=== PATIENT | male | born 1950 | race Caucasian/White ===

== ENCOUNTER 2019-12-22 19:02 | Emergency (ER) | payer MEDICARE, OTHER, SELFPAY ==
[2019-12-22 19:18] VITALS: BP 172/71; PULSE 82; RESP 20; TEMP 36.9; O2SAT 100
--- NOTE | 2019-12-22 19:20 | ED.GENADULT ---
HPI - General Adult General Chief complaint: Extremity Injury, Upper Stated complaint: right hand swollen Time Seen by Provider: 12/22/19 19:21 Source: patient and RN notes reviewed Mode of arrival: ambulatory Limitations: no limitations History of Present Illness HPI narrative: This is a 67 years old male presented office for evaluation of right hand swollen and painful since he woke up yesterday morning.Denies direct trauma or injury on his affected hand prior to onset of symptoms.Denies direct trauma or injury on his affected hand prior to onset of symptoms. Denies insect bite. He admits to dry skin on his knuckles and hands; sometimes crack. He recalls wearing old gloves to clean his horse prior. He is right hand dominated. He is not diabetic. TD is unsure; maybe within 7-8years; but he rather takes another one to be on the safe side. Related Data Allergies Allergy/AdvReac Type Severity Reaction Status Date / Time No Known Allergies Allergy Verified 12/22/19 19:20 Review of Systems Review of Systems: Narrative: CONSTITUTIONAL: Denies fever or feeling ill CARDIOVASCULAR: Denies chest pain RESPIRATORY: Denies dyspnea GASTROINTESTINAL: Denies abdominal pain, nausea, vomiting, diarrhea. SKIN: Reports right hand swollen, red and warmth MUSCULOSKELETAL: Denies wrist pain/shoulder pain NEUROLOGIC: Denies lightheaded PMFSH Social History Social History (Updated 12/22/19 @ 19:41 by PARAG Mcfarland) Smoking status: Never smoker Comments At time of signature, I agree with nursing past medical, surgical, social and family history. There is no relevant family history pertinent to the presenting complaint. Exam Narrative: Exam Narrative: GENERAL: This is a well-nourished, well-developed patient, in no apparent distress. CARDIOVASCULAR: Regular rate and rhythm without murmurs, gallops, or rubs. RESPIRATORY: Clear to auscultation. Breath sounds equal bilaterally. No wheezes, rales, or rhonchi. GASTROINTESTINAL: Abdomen soft, non-tender, nondistended. Bowel sounds are active. No guarding. NEURO: awake, alert, and oriented to person, place and time. There were no obvious focal neurologic abnormalities. EXTREMITIES: Right hand and fingers noted erythema, edematous, warmth with clear demarcation around wrist area; possible source of infection entry from skin fissures on his knuckles. Right wrist with normal ROM; cap refills brisk. Course Vital Signs Vital signs: Vital Signs Temperature 98.5 F 12/22/19 19:18 Pulse Rate 82 12/22/19 19:18 Respiratory Rate 20 12/22/19 19:18 Blood Pressure 172/71 H 12/22/19 19:18 Pulse Oximetry 100 12/22/19 19:18 Temperature 98.5 F 12/22/19 19:18 Pulse Rate 82 12/22/19 19:18 Respiratory Rate 12/22/19 19:18 Blood Pressure 172/71 H 12/22/19 19:18 Pulse Oximetry 100 12/22/19 19:18 Medical Decision Making MDM Narrative Medical decision making narrative: Discharge instructions reviewed with patient, as well as provided in writing per nursing staff. The instructions also include specific and strict return/GO TO THE ER as well as f/u information. All questions have been answered, and the patient deny any further questions with discharge and discharge plan. Differential Diagnosis Differential Diagnosis: Contact/allergic dermatitis, atopic dermatitis, psoriasis, eczema, cellulitis, erythema multiforme Vital Signs Vital Signs: Vital Signs Temperature 98.5 F 12/22/19 19:18 Pulse Rate 82 12/22/19 19:18 Respiratory Rate 12/22/19 19:18 Blood Pressure 172/71 H 12/22/19 19:18 Pulse Oximetry 100 12/22/19 19:18 Temperature 98.5 F 12/22/19 19:18 Pulse Rate 82 12/22/19 19:18 Respiratory Rate 12/22/19 19:18 Blood Pressure 172/71 H 12/22/19 19:18 Pulse Oximetry 100 12/22/19 19:18 Critical Care Time Critical Care Time Critical Care Time: No Discharge Plan Discharge Clinical Impression: Cellulitis of finger of r
[2019-12-22] MEDS: TETANUS,DIPHTHERIA,AC PERTUSSIS ADULT 0.5 ML (ADACEL) IM (19:38)
== END 2019-12-22 19:50 | disposition home or self-care (01) ==
PROVIDERS: Emergency Provider Nurse Practitioner
DX: L03.011 Cellulitis of right finger (principal); Z23 Encounter for immunization
CPT/HCPCS: 90471; 90715; 99203; G0463

== ENCOUNTER 2020-08-12 18:00 | Emergency (ER) | payer MEDICARE, OTHER, SELFPAY ==
--- NOTE | ~2020-08-12 | CT_ITS ---
EXAMINATION: CT facial bones wo con DATE: 08/12/2020 19:31 INDICATION: Facial trauma TECHNIQUE: Computed tomography (CT) of the facial bones and maxillofacial region was performed withou t intravenous contrast. Automated exposure control and iterative reconstruction technique were employ ed. Exam dose: 321.87 mGy-cm total exam DLP. COMPARISON: None. FINDINGS: There is left frontal cephalohematoma and left periorbital soft tissue swelling. Postoperative change with radiopaque sutures at the left inferior orbital rim and left frontozygomati c suture. There is a lucency of the midportion of the left zygomatic arch without displacement, consistent with fracture of uncertain age No other recent facial fracture is evident. The mandible is intact. Temporal mandibular joints are no rmally aligned. IMPRESSION: Nondisplaced left zygomatic arch fracture of undetermined age Postoperative change from old fractures Reviewed, dictated and finalized at [facility] Reviewed, dictated and finalized at [facility].
[2020-08-12 18:14] VITALS: BP 170/93; PULSE 106; RESP 18; TEMP 37.1; O2SAT 100
--- NOTE | 2020-08-12 19:00 | PC.NURSE ---
patient brought back to ED H3 with left eye injury. patient states yesterday he was walking thru his home while holding a bottle. tripped and fell. struck his left eye on the bottle as he fell. has bruising and swelling to his left eye. some mucous like drainage around left eye also. patient went to urgent care but referred to ED. denies LOC at time of fall. denies neck pain. here with concern about his eye. alert. oriented. assessments documented.
--- NOTE | 2020-08-12 19:12 | ED.EYEPROB ---
HPI - Eye Problem General Chief complaint: Eye Problems Stated complaint: hit with bottle to l eye Time Seen by Provider: 08/12/20 19:05 History of Present Illness HPI Narrative: He was walking with a glass glass unloading equipment tender in his hand last night when he fell, striking himself above the left eye. He had some pain at the time, but normal vision and was otherwise feeling well. He awoke this morning with his eye swollen shut. The pain is moderate. No pain with eye movement. Related Data Allergies Allergy/AdvReac Type Severity Reaction Status Date / Time No Known Allergies Allergy Verified 12/22/19 19:20 Review of Systems Review of Systems: All systems reviewed & are unremarkable except as noted in HPI and below Constitutional: Constitutional: Denies fever(s) Eyes: Eyes: Denies change in vision ENT: Denies system reviewed and no additional complaints, except as documented Cardiovascular: Cardiovascular: Denies chest pain Respiratory: Respiratory: Denies dyspnea Gastrointestinal: Gastrointestinal: Denies nausea and Denies vomiting Musculoskeletal: Musculoskeletal: Denies back pain Neurologic: Denies confusion, Denies dizziness and Denies weakness [facility] Social History Social History Smoking status: Never smoker Exam Const: General: healthy appearing, no acute distress and alert Orientation/consciousness: patient oriented x3 HENMT: Ears: TM's normal bilaterally and EAC's normal Other: Periorbitla bruising and swelling on the left Eyes: Conjunctivae: conjunctivae normal Pupils: Equal, round and reactive pupils present EOM: EOMs intact bilaterally Neck: Neck: normal visual inspection and no lymphadenopathy Chest: Chest palpation & inspection: no tenderness Resp: Effort & Inspection: normal respiratory effort Auscultation: clear to auscultation bilaterally, no rales, no rhonchi and no wheezes Cardio: Jugular venous distension: no JVD Rate: regular rate Rhythm: regular rhythm Heart sounds: no murmurs GI: Inspection: non-distended GI Palp: Yes Soft to palpation and No Tenderness to palpation present (GI) Skin: General skin exam: normal color Neuro: General: patient oriented x3 and moves all extremities Speech: normal speech Extrem: General: no edema Psych: Appearance: well kempt Affect: normal affect Course Vital Signs Vital signs: Vital Signs Temperature 37.1 C 10/10/20 18:14 Pulse Rate 106 H 08/12/20 18:14 Respiratory Rate 18 08/12/20 18:14 Blood Pressure 170/93 H 08/12/20 18:14 Pulse Oximetry 100 08/12/20 18:14 Temperature 37.1 C 08/12/20 18:14 Pulse Rate 100 08/12/20 20:15 Respiratory Rate 20 08/12/20 20:15 Blood Pressure 150/80 H 08/12/20 20:15 Pulse Oximetry 99 08/12/20 20:15 MDM - Eye Problem MDM Narrative Medical decision making narrative: Normal eye exam. CT shows nondisplaced zygomatic arch fracture. Will give plastics follow-up as needed Imaging Data Radiologist's impression: ITS Impressions Face CT 08/12/20 19:50 IMPRESSION: Nondisplaced left zygomatic arch fracture of undetermined age Postoperative change from old fractures Discharge Plan Discharge Clinical Impression: Closed fracture of zygomatic arch Patient Disposition: Home, Self-Care Condition: Stable Instructions: Facial Fracture (ED) Prescriptions: No Action cephalexin [Keflex] 500 mg capsule 500 mg PO QID 7 Days Qty: 28 RF: 0 Follow-up/Referrals: Maxwell Siddiqui MD [Physician] - (As needed ) PHYSICIAN,INTELLIGENCE CHIEF [Primary Care Provider] -
[2020-08-12 20:15] VITALS: BP 150/80; PULSE 100; RESP 20; O2SAT 99
== END 2020-08-12 20:15 | disposition home or self-care (01) ==
PROVIDERS: Emergency Provider Emergency Medicine
DX: S02.40FA Zygomatic fracture, left side, initial encounter for closed fracture (principal); W01.198A Fall on same level from slipping, tripping and stumbling with subsequent striking against other object, initial encounter
CPT/HCPCS: 70486; 99284

== ENCOUNTER 2021-02-04 15:32 | Observation (INO) | payer MEDICARE, OTHER, SELFPAY ==
[2021-02-04] VITALS (8 sets, daily range): BP systolic 132–169; BP diastolic 80–98; PULSE 72–88; RESP 10–20; TEMP 36.2–37.1; O2SAT 96–99; BMI 26.4
--- NOTE | ~2021-02-04 | CT_ITS ---
EXAMINATION: CTA brain carotid DATE: 02/04/2021 18:09 INDICATION: Confusion. TECHNIQUE: Computed tomographic angiography (CTA) of the head was performed with 100 mL Omnipaque-350 intravenous contrast. CTA of the neck was performed with intravenous contrast. Automated exposure co ntrol and iterative reconstruction technique were employed. The dose-length product was 1149.75 mGy-c m. Maximum intensity projection and volume rendered 3D-reconstructions were created by the technPalamidai st on a separate workstation. COMPARISON: Head CT 02/04/2021 FINDINGS: HEAD CTA: There is no intracranial hemorrhage, acute infarction, or abnormal intracranial mass lesion . The ventricles are normal in size. The orbits are normal. There is mild mucosal thickening in the p aranasal sinuses. There are old healed fractures of left zygomaticomaxillary complex with wire fixati on. The mastoid air cells are normal. Right vertebral artery is dominant. There is no significant alda nosis of basilar artery or the posterior cerebral arteries. The posterior communicating arteries are normal. There is no significant stenosis of the intracranial internal carotid arteries or anterior or middle cerebral arteries. Anterior communicating artery is normal. There is no aneurysm. NECK CTA: There is mild emphysema. There are no pathologically enlarged lymph nodes. There is no sign ificant stenosis of the vertebral arteries. There is plaque in the proximal internal carotid arteries with 0% stenosis relative to normal distal artery lumen diameters. There is severe cervical spondylo sis. IMPRESSION: 1. Normal brain. No aneurysm or significant intracranial arterial stenosis. 2. 0% stenosis of the proximal internal carotid arteries relative to normal distal artery lumen diame ters (NASCET criteria). Reviewed, dictated and finalized at [facility]. IMPRESSION: 1. Normal brain. No aneurysm or significant intracranial arterial stenosis. 2. 0% stenosis of the proximal internal carotid arteries relative to normal dis thaddeus artery lumen diameters (NASCET criteria).
--- NOTE | ~2021-02-04 | XR_ITS ---
EXAMINATION: XR chest 1V portable DATE: 02/04/2021 16:26 INDICATION: Altered mental status. TECHNIQUE: A single frontal view of the chest was obtained. COMPARISON: None. FINDINGS: There is mild scarring at right lung apex. No pleural effusion or pneumothorax. The heart s ize is normal. IMPRESSION: 1. Mild scarring at right lung apex. Reviewed, dictated and finalized at [facility].
--- NOTE | ~2021-02-04 | MR_ITS ---
EXAMINATION: MR brain/brain stem wo/w con DATE: 02/05/2021 08:58 INDICATION: Transient ischemic attack. TECHNIQUE: Magnetic resonance imaging (MRI) of the brain and brainstem was performed without and with 18 mL MultiHance intravenous contrast. Sequences included sagittal and axial T1-weighted FSE, axial diffusion-weighted FS EPI, axial T2*-weighted GRE, axial T2-weighted FLAIR Propeller, and axial T2-we ighted Propeller. Postcontrast sequences included axial and coronal T1-weighted FSE. Apparent diffusi on coefficient (ADC) maps were created. COMPARISON: Head CT 02/04/2021 FINDINGS: There are scattered areas of nonspecific increased T2-weighted signal intensity in the cere bral white matter, which is within normal limits for the patient's age. There is no intracranial hemo rrhage, acute infarction, or abnormal intracranial mass lesion. The ventricles are normal in size. Th ere is mild mucosal thickening in the paranasal sinuses. The orbits are normal. There is a trace righ t mastoid effusion. IMPRESSION: 1. Normal aging brain. Reviewed, dictated and finalized at [facility]. IMPRESSION: 1. Normal aging brain.
--- NOTE | ~2021-02-04 | CT_ITS ---
EXAMINATION: CT brain wo con DATE: 02/04/2021 16:21 INDICATION: Confusion. TECHNIQUE: Computed tomography (CT) of the head was performed without intravenous contrast. The mA wa s adjusted according to patient size. Iterative reconstruction technique was employed. The dose-lengt h product was 605.33 mGy-cm. COMPARISON: None FINDINGS: There is no intracranial hemorrhage, acute infarction, or abnormal intracranial mass lesion . There are scattered areas of low attenuation in the cerebral white matter, which is within normal l imits for the patient's age. The ventricles are normal in size. The orbits are normal. There is mild mucosal thickening in the paranasal sinuses. There is internal fixation of lateral wall of left orbit and anterior wall of left maxillary sinus. The mastoid air cells are normal. IMPRESSION: 1. Normal aging brain. Reviewed, dictated and finalized at location [facility]. IMPRESSION: 1. Normal aging brain.
--- NOTE | 2021-02-04 15:34 | ECG_ITS ---
Measurements Intervals Levels Rate: 81 P: 54 MO: 159 QRS: -16 QRSD: 99 T: 58 QT: 376 QTc: 438 Interpretive Statements SINUS RHYTHM WITH MARKED SINUS ARRHYTHMIA DELAYED PRECORDIAL R/S TRANSITION BORDERLINE ECG Electronically Signed On 02-04-2021 17:20:52 CDT by Reinaldo Garner D.O.
[2021-02-04 16:25] LABS: Basophils Absolute Auto 0.1 K/mm3 (0.0-0.1); Basophils Percent Auto 0.8 % (0.2-1.2); Eosinophils Percent Auto 0.5 % (0-4.4); Hematocrit 42.8 % (42.0-52.0); Hemoglobin 14.6 g/dL (14.0-18.0); Immature Granulocyte Absolute 0.01 K/mm3 (0.00-0.031); Immature Granulocyte Percent A 0.2 % (0-0.5); Lymphocytes Absolute Auto 0.93 K/mm3 (0.9-3.2); Lymphocytes Percent Auto 14.6 % (18.3-44.2); Mean Corpuscular HGB Conc 34.1 g/dl (32-36); Mean Corpuscular Hemoglobin 30.1 pg (26-34); Mean Corpuscular Volume 88.2 fl (80-100); Mean Platelet Volume 9.3 fl (7.4-10.4); Monocytes Absolute Auto 0.4 K/mm3 (0.1-0.6); Neutrophils Percent Auto 77.9 % (45.5-73.1); Platelet Count Result 232 k/mm3 (150-375); Red Blood Count 4.85 M/mm3 (4.6-6.20); Red Cell Distribution Width 12.3 % (11.5-14.5); White Blood Count 6.4 K/mm3 (4.5-10.0)
[2021-02-04 16:36] LABS: Alanine Aminotransferase 18 U/L (4-50); Albumin Level 4.6 g/dL (3.5-5.1); Alkaline Phosphatase 74 U/L (38-126); Anion Gap 6 mmol/L (8-16); Aspartate Amino Transferase 24 U/L (17-59); Bilirubin,Total 0.5 mg/dL (0.2-1.3); Blood Urea Nitrogen 14 mg/dL (9-20); Calcium 9.7 mg/dL (8.4-10.2); Carbon Dioxide 28 mmol/L (22-30); Chloride 107 mmol/L (98-107); Estimated CRCL calculation 71 ml/min; Estimated Glomerular Filt Rate > 60; Glucose 113 mg/dL (75-110); Potassium 4.5 mmol/L (3.4-5.0); Sodium 141 mmol/L (137-145)
[2021-02-04 16:42] LABS: Add Urine Microscopic? YES; Appearance Urine Clear (Clear); Bilirubin Urine Negative (Negative); Blood Urine Negative (Negative); Color Urine Straw (Yellow); Glucose Urine UA Negative (Negative); Ketones Urine Negative (Negative); Leukocyte Esterase Ur Negative LEU/UL (Negative); Nitrate Urine Negative (Negative); Protein Urine Negative (Negative); Specific Grav Ur 1.006 (1.001-1.035); Urobilinogen Urine Negative mg/dL (<2.0); WBC Urine 0-3 /hpf
[2021-02-04 16:54] LABS: INR 0.9; Partial Thromboplastin Time 24.6 SECONDS (22.3-36.8); Prothrombin Time 12.7 Seconds (11.1-14.7)
[2021-02-04 17:15] LABS: Troponin I < 0.012 ng/mL (0.000-0.034)
[2021-02-04 17:24] LABS: Glucose Point of Care 108 (65-105)
--- NOTE | 2021-02-04 17:30 | PC.NURSE ---
Patient is repeating questions at this time. He was informed of plan to admit him into the hospital due to his symptoms and possibility that he had a stroke. He verbalized understanding of this but, twice over the next 20 minutes, he asked me why he was being admitted and what the doctor meant but him possibly having a stroke. When I asked if he remembered me telling him this information, he told me he did not recall. Patient's tells me that similar events have been happening since approximately 1300 today.
--- NOTE | 2021-02-04 18:15 | ED.AMS ---
HPI - Altered Mental Status General Chief Complaint: Altered Mental Status Stated Complaint: AMS Time Seen by Provider: 02/04/21 16:51 Source: patient and family Mode of arrival: ambulatory Limitations: altered mental status History of Present Illness HPI narrative: 70-year-old with a history of hypercholesteremia was brought in by his with complaints of sudden loss of short term memory. Patient reports that the symptoms started about 130 this afternoon, Repeating himself and asking the same questions on and on. Patient upon arrival denies any headache or any motor weakness. However he repeats himself several times while he is here. complaint: altered mental status Onset (ago): hour(s) (4) Timing confirmed by: spouse Severity: moderate Associated symptoms: denies other symptoms Related Data Home Medications Medication Instructions Recorded Confirmed No Home Medications 02/04/21 02/04/21 Allergies Allergy/AdvReac Type Severity Reaction Status Date / Time No Known Allergies Allergy Verified 02/04/21 16:18 Review of Systems Review of Systems: All systems reviewed & are unremarkable except as noted in HPI and below Constitutional: Constitutional: Reports no additional constitutional complaints Eyes: Eyes: Reports no additional eye complaints ENT: Reports system reviewed and no additional complaints, except as documented Cardiovascular: Cardiovascular: Reports no additional cardiovascular complaints Respiratory: Respiratory: Reports no additional respiratory complaints Gastrointestinal: Gastrointestinal: Reports no additional gastrointestinal complaints Musculoskeletal: Musculoskeletal: Reports no additional musculoskeletal complaints Integumentary/Breasts: Skin/Breast: Reports system reviewed and no additional complaints, except as docu Neurologic: Reports as per HPI Psychiatric: Psychiatric: Reports no additional psychiatric complaints Endocrine: Endocrine: Reports no additional endocrine complaints PMFSH Social History Social History Smoking status: Never smoker Gender identity (if verbalized by the patient): Male Exam Narrative: Exam Narrative: GENERAL: Well-appearing, well-nourished, and in no acute distress. HEAD: Normocephalic, atraumatic. EYES: PERRLA and EOMI. ENT: Nares clear, no rhinorrhea or epistaxis. Mucous membranes moist. NECK: Supple. CHEST: Clear to auscultation. No respiratory distress. HEART: Regular rate and rhythm. No murmur heard. Normal peripheral pulses. ABDOMEN: Soft, nontender, nondistended, normal active bowel sounds. EXTREMITIES: Normal range of motion. No edema. SKIN: Warm, dry, no rash. NEURO: No focal deficits. Alert and oriented x3. PSYCH: Normal mood and affect. Course Course Emergency Course: Inform patient and family about her lab work, CT findings he still continues to have short-term memory loss. We will admit him to the hospital for further evaluation consider MRI in the morning. Vital Signs Vital signs: Vital Signs Temperature 37.1 C 02/04/21 16:10 Pulse Rate 88 02/04/21 16:10 Respiratory Rate 18 02/04/21 16:10 Blood Pressure 169/84 H 02/04/21 16:10 Pulse Oximetry 98 02/04/21 16:10 Temperature 36.6 C 02/04/21 16:57 Pulse Rate 83 02/04/21 16:57 Respiratory Rate 10 L 02/04/21 16:57 Blood Pressure 169/96 H 02/04/21 16:57 Pulse Oximetry 97 02/04/21 16:57 MDM - Altered Mental Status Lab Data Result diagrams: 02/04/21 16:16 02/04/21 16:16 Labs: Lab Results 02/04/21 02/04/21 02/04/21 Range/Units 16:16 16:16 16:16 WBC 6.4 (4.5-10.0) K/mm3 RBC 4.85 (4.6-6.20) M/mm3 Hgb 14.6 (14.0-18.0) g/dL Hct 42.8 (42.0-52.0) % MCV 88.2 (80-100) fl MCH 30.1 (26-34) pg MCHC 34.1 (32-36) g/dl RDW 12.3 (11.5-14.5) % Plt Count 232 (150-375) k/mm3 MPV 9.3 (7.4-10.4) fl Immature
--- NOTE | 2021-02-04 20:30 | PC.NURSE ---
This patient, Jared Portillo, was admitted to [facility] Surg Room 325-01. Patient/family oriented to hospital policies and general routines including ID bracelet, bed and alarms, visiting hours, pain management, procedures, bathroom and other care routines, personal items, smoking policy, room service/diet, and visiting hours. Information on how to activate the Rapid Response Team has been discussed. Patient/Family are encouraged to report perceived risks to care and to ask questions if they do not understand what they are told or what they should do.
--- NOTE | 2021-02-04 21:00 | PM.IMHP ---
H&P: HPI History of Present Illness Date/Time: 02/04/21 21:00 Chief Complaint: Confusion. Narrative: This is a 62-year-old male with no significant medical problems who presented to the emergency department earlier today from home at the encouragement of his for evaluation of confusion. He was in his usual state of health when he got up this morning and apparently took his dogs on a walk. He then tells me that he made a casserole and the next thing he remembers is his telling him that he was ?acting funny? and she brought him to the emergency department. Apparently he seemed to be confused and was speaking slowly with repetitive speech starting at approximately 13:00. On arrival to the ED his speech was still slow and he was unsure of the date, time, and year. He has become increasingly more oriented since he has been in the emergency department and is now where it and oriented times 4 with the exception that he could not remember the name of the president. He does not have much memory with regards to what happened during the time that his thought he was confused and repetitive. He has never had similar symptoms in the past. He has no known medical history although he was told that his cholesterol was perhaps a little bit high at 1 point in time. He denies strenuous activity. No falls or head injury. He has not had chest pain, palpitations, or feelings of racing heart. He also denies vertigo, syncope, near syncope, auditory visual changes, focal weakness, and paresthesias. Of note, he reports that over the past year he has developed hammertoes on his right foot only which he thinks is unusual. He has not had any trauma to that leg and he denies neuropathy, ill fitting shoes, and history of neurologic disorder. [facility] Past Medical History Medical History High cholesterol Surgical History Surgical History (Updated 02/04/21 @ 22:57 by Sabrina Larry PA-C) History of bilateral inguinal hernia repair History of facial surgery Repair left orbital fracture. Family History Family History (Updated 02/04/21 @ 22:57 by Sabrina Larry PA-C) Mother Cerebrovascular accident Father Myocardial infarct Social History Social History (Updated 02/04/21 @ 22:59 by Sabrina Larry PA-C) Social History: The patient lives with his in [place]. They have 2 dogs. He has no children. 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 He drinks about a 12 pack of beer a week. No illicit substance use. He designates his Rani as his surrogate decision maker and he wishes to be a full code. Meds Home Medications and Allergies Home Medications Medication Instructions Recorded Confirmed Type No Home Medications 02/04/21 02/04/21 History Allergies Allergy/AdvReac Type Severity Reaction Status Date / Time No Known Allergies Allergy Verified 02/04/21 20:59 Vital Signs Vital Signs - 24 hr 02/04/21 16:10 02/04/21 16:57 02/04/21 17:31 Temperature 98.7 F 97.9 F 97.1 F L Pulse Rate 88 83 85 Respiratory Rate 18 10 L 13 Blood Pressure 169/84 H 169/96 H 159/86 H Pulse Oximetry 98 97 98 02/04/21 18:30 02/04/21 19:25 02/04/21 20:30 Temperature 98.3 F 97.9 F 98.7 F Pulse Rate 82 73 72 Respiratory Rate 10 L 14 20 Blood Pressure 164/91 H 151/86 H 132/98 H Pulse Oximetry 99 96 97 02/04/21 21:08 Temperature 97.5 F L Pulse Rate 78 Respiratory Rate 18 Blood Pressure 149/88 H Pulse Oximetry 99 Exam Narrative: Exam Narrative: General: Well-developed male sitting up in bed in no distress. Weight: 90.8 kilograms. BMI: 26.4. HEENT: Normocephalic, atraumatic. PERRL, EOMI. Sclerae anicteric. Oral mucosa moist. Oropharynx clear. Neck: Supple. No JVD or carotid bruits. Respiratory: Lungs are clear to auscultation bilaterally. Cardiovascular: Regular rate and rhythm wit
[2021-02-04] MEDS: LACTATED RINGERS 1,000 ML 75 ML IV CONT (21:02)
[2021-02-05] VITALS: BP 155/88; PULSE 63; PULSE 75; RESP 20; TEMP 36.5; O2SAT 95
[2021-02-05 02:12] LABS: Barbiturate Screen Urine Negative (Negative); Benzodiazepines Screen Urine Negative (Negative)
[2021-02-05 02:52] LABS: Cannabinoid Screen Urine Negative (Negative); Cocaine Screen Urine Negative (Negative); Methadone Screen Urine Negative (Negative); Opiate Screen Urine Negative (Negative); Phencyclidine Screen Urine Negative (Negative)
[2021-02-05 04:00] VITALS: BP 146/79; PULSE 67; RESP 20; TEMP 37; O2SAT 95
[2021-02-05 06:11] LABS: Alanine Aminotransferase 17 U/L (4-50); Alkaline Phosphatase 60 U/L (38-126); Anion Gap 4 mmol/L (8-16); Aspartate Amino Transferase 23 U/L (17-59); Bilirubin,Total 0.7 mg/dL (0.2-1.3); Blood Urea Nitrogen 13 mg/dL (9-20); Calcium 8.9 mg/dL (8.4-10.2); Carbon Dioxide 28 mmol/L (22-30); Chloride 109 mmol/L (98-107); Cholesterol 229 mg/dL (0-200); Estimated CRCL calculation 71 ml/min; Estimated Glomerular Filt Rate > 60; Glucose 107 mg/dL (75-110); HDL Direct 80 mg/dL; Sodium 141 mmol/L (137-145); Triglycerides 171 mg/dL (<150)
[2021-02-05 06:22] LABS: LDL Cholesterol Direct 113 mg/dL
[2021-02-05 08:00] VITALS: BP 162/88; PULSE 72; PULSE 80; RESP 16; TEMP 36.2; O2SAT 97
[2021-02-05] MEDS: ASPIRIN 81 MG CHEWABLE TABLET PO (09:04)
[2021-02-05] MEDS: CYANOCOBALAMIN 1,000 MCG TABLET 1000 MCG PO (09:04)
[2021-02-05 10:18] VITALS: O2SAT 97
--- NOTE | 2021-02-05 10:34 | WPDNEURCNPN ---
Assessment and Plan Assessment and plan (1) Transient neurological symptoms: Code(s): R29.818 - Other symptoms and signs involving the nervous system Status: Acute (2) Elevated blood pressure reading: Code(s): R03.0 - Elevated blood-pressure reading, without diagnosis of hypertension Status: Acute (3) Brain TIA: Code(s): G45.9 - Transient cerebral ischemic attack, unspecified Status: Acute Additional Plan question about TIA, TGA, or early dementia plan is to evaluate him completely before any further recommendations or may Consult date: 02/05/21 Time Seen: 11:15 HPI: Jared Portillo is a 70 year old male admitted to the hospital for the complaints of confusion. He was brought to the emergency room by his for the complaints of increasing confusion as per the information available at the time of admission from him he reported to the hospital that he made of Calcitrol next thing he remembered his was telling him that he was acting fine and brought him to the emergency department he was with walking talking slow his speech was still slow by the time he was seen by the hospitalist but was gradually becoming more oriented he has never had such an episode in the past he gave no history of recent or remote trauma he gave knows to weakness of 1 side or other side he does have ongoing history of hyper cholesterolemia Review of Systems Review of Systems: All systems reviewed & are unremarkable except as noted in HPI and below PMFSH Past Medical History Medical History High cholesterol Surgical History Surgical History History of bilateral inguinal hernia repair History of facial surgery Repair left orbital fracture. Family History Family History Mother Cerebrovascular accident Father Myocardial infarct Social History Social History Social History: The patient lives with his in [place]. They have 2 dogs. He has no children. 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. 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 He drinks about a 12 pack of beer a week. No illicit substance use. He designates his Rani as his surrogate decision maker and he wishes to be a full code. Meds Home Medications and Allergies Home Medications Medication Instructions Recorded Confirmed Type No Home Medications 02/04/21 02/04/21 History Allergies Allergy/AdvReac Type Severity Reaction Status Date / Time No Known Allergies Allergy Verified 02/04/21 20:59 Vital Signs Vital Signs - 24 hr 02/04/21 16:10 02/04/21 16:57 02/04/21 17:31 Temperature 37.1 C 36.6 C 36.2 C L Pulse Rate 88 83 85 Respiratory Rate 18 10 L 13 Blood Pressure 169/84 H 169/96 H 159/86 H Pulse Oximetry 98 97 98 02/04/21 18:30 02/04/21 19:25 02/04/21 20:30 Temperature 36.8 C 36.6 C 37.1 C Pulse Rate 82 73 72 Respiratory Rate 10 L 14 20 Blood Pressure 164/91 H 151/86 H 132/98 H Pulse Oximetry 99 96 97 02/04/21 21:08 02/04/21 22:00 02/05/21 00:00 Temperature 36.4 C L 37.1 C 36.5 C Pulse Rate 78 75 63 Respiratory Rate 18 20 20 Blood Pressure 149/88 H 147/80 H 155/88 H Pulse Oximetry 99 97 95 02/05/21 04:00 02/05/21 08:00 Temperature 37.0 C 36.2 C L Pulse Rate 67 80 Respiratory Rate 20 16 Blood Pressure 146/79 H 162/88 H Pulse Oximetry 95 97 Exam Const: General: cooperative, healthy appearing, comfortable, alert, awake and anxious Nutritional Appearance: average body habitus Orientation/consciousness: oriented to person and oriented to place Limitations: no limitations Eyes: General: appearance normal, both eyes and all related structures Visual [place]: normal visual [place]amanca by confrontation Alignment and Position: alignment normal Periorbital: periorbital findings
[2021-02-05 10:51] LABS: Free T4 Free Thyroxine Reflex 0.67 ng/dL (0.78-2.19)
[2021-02-05 12:00] VITALS: BP 148/79; PULSE 63; PULSE 64; RESP 16; TEMP 36.5; O2SAT 97
[2021-02-05] MEDS: amLODIPine BESYLATE 5 MG TABLET PO (13:45)
--- NOTE | 2021-02-05 15:26 | PM.IMPN ---
Progress Note: A&P Assessment and Plan (1) Brain TIA: Code(s): G45.9 - Transient cerebral ischemic attack, unspecified Status: Acute Assessment and Plan: Presented with 1-2 hours of confusion that resolved entirely. Head CT showed normal aging brain. Head/neck CTA showed 0% stenosis of the proximal internal carotid arteries. Brain MRI showed normal aging brain. Telemetry reviewed with normal sinus rhythm. He was seen in consultation by Neurology. Findings felt to be most consistent with TIA. He will begin aspirin daily. ASCVD risk score of 16.8%. Additional risk factors will be modified including hypertension and hypercholesterolemia -see below. He will follow-up with neurology. Awaiting echocardiogram with bubble study. Hopeful discharge today pending results (2) Hypertension: Code(s): I10 - Essential (primary) hypertension Status: Inactive Assessment and Plan: Blood pressures reviewed and were consistently elevated, consistent with diagnosis of hypertension. Initiate amlodipine 5 mg daily. Encouraged patient to monitor BP at home 3-4 times per week and follow-up with PCP for further evaluation and management. (3) High cholesterol: Code(s): E78.00 - Pure hypercholesterolemia, unspecified Status: Acute Assessment and Plan: Lipid panel reviewed. Based on ASCVD risk calculation, will initiate moderate intensity statin. Further follow-up with PCP needed. (4) B12 deficiency: Code(s): E53.8 - Deficiency of other specified B group vitamins Status: Acute Assessment and Plan: Vitamin B12 levels reviewed and found to be deficient. Will initiate him on daily B12 supplementation. (5) Subclinical hypothyroidism: Code(s): E03.9 - Hypothyroidism, unspecified Status: Acute Assessment and Plan: TSH 6.310. T4 0.67. Recommend repeat TSH with reflex in 4-6 weeks. Subjective Date/time seen: 02/05/21 15:26 Interval history: Date of service: 02/05/2021 Jared Portillo is a 70 year old male with history of hyperlipidemia who is seen in follow-up for suspected TIA. He is feeling well today. He has no complaints and feels that he is back to his usual state of health. He denies any further confusion. Denies dizziness, lightheadedness, weakness, loss of balance, or coordination. He has been ambulating around his room without difficulty. Denies paresthesias. No dysphagia. No speech changes. Denies headache. Denies nausea, vomiting, fever, chills, shortness breath, cough, chest pain, or palpitations. Review of Systems Review of Systems: All systems reviewed & are unremarkable except as noted in HPI and below Exam Narrative: Exam Narrative: Mr. Portillo is a well-nourished, well-appearing 70-year-old male who is sitting in chair by the bedside. He appears comfortable and is in NARD. Neuro: awake, alert and oriented x4, speech clear, CN II-XII intact, strength 5/5 throughout, sensation intact, no pronator drift, bilateral project analyst strength equal, able to perform rapid alternating movements, able to perform finger to nose, gait normal HEENMT: normocephalic, atraumatic, EOMI, sclerae anicteric, moist oral mucosa, tongue midline, nares patent Neck: supple, no lymphadenopathy Respiratory: clear to auscultation bilaterally, nonlabored breathing Cardio: regular rate, regular rhythm with S1-S2 Abdomen: nondistended, normoactive bowel sounds, soft, nontender to palpation, no rigidity or guarding Extremities: no edema, erythema, cyanosis, clubbing, or tenderness to palpation, DP pulses 2+ bilaterally Skin: no rashes or lesions, warm and dry Psych: appropriate mood and affect, judgment and insight intact Objective Data Vital Signs Vital Signs: Vital Signs - 24 hr 02/04/21 16:10 02/04/21 16:57 02/04/21 17:31 Temperature 98.7 F 97.9 F 97.1 F L Pulse Rate 88 83 85 Respiratory Rate 18 10 L 13 Blood Pressure 169/84 H
[2021-02-05 16:00] VITALS: BP 132/90; PULSE 60; RESP 16; TEMP 36.7; O2SAT 97
--- NOTE | 2021-02-05 17:06 | PM.DS ---
DS: Admitting Diagnosis Admitting Diagnosis Admitting Diagnosis: Transient Neurologic Symptoms DS: Discharge Diagnosis Discharge Diagnosis (1) Brain TIA: Code(s): G45.9 - Transient cerebral ischemic attack, unspecified Status: Acute Assessment and Plan: Presented following episode of confusion lasting 1-2 hours that resolved entirely. Head CT showed normal aging brain. Head/neck CTA showed 0% stenosis of the proximal internal carotid arteries. Echocardiogram performed without evidence of interatrial shunt. Normal EF and no significant valvular disease. Brain MRI showed normal aging brain. Telemetry reviewed with normal sinus rhythm. He was seen in consultation by Neurology. Findings felt to be most consistent with TIA. He will begin aspirin daily. ASCVD risk score of 16.8%. Additional risk factors will be managed including hypertension and hypercholesterolemia - see below. He will follow-up with neurology. (2) Hypertension: Code(s): I10 - Essential (primary) hypertension Status: Inactive Assessment and Plan: Blood pressures reviewed and were consistently elevated, consistent with diagnosis of hypertension. Initiate amlodipine 5 mg daily. Encouraged patient to monitor BP at home 3-4 times per week and follow-up with PCP for further evaluation and management. (3) High cholesterol: Code(s): E78.00 - Pure hypercholesterolemia, unspecified Status: Acute Assessment and Plan: Lipid panel reviewed. Based on ASCVD risk calculation, will initiate moderate intensity statin. Further follow-up with PCP needed. (4) B12 deficiency: Code(s): E53.8 - Deficiency of other specified B group vitamins Status: Acute Assessment and Plan: Vitamin B12 levels reviewed and found to be deficient. Will start him on daily B12 supplementation. (5) Subclinical hypothyroidism: Code(s): E03.9 - Hypothyroidism, unspecified Status: Acute Assessment and Plan: TSH 6.310. T4 0.67. Recommend repeat TSH with reflex in 4-6 weeks. DS: Summary Hospital Course Reason for hospitalization: Transient neurologic symptoms Hospital Course: Date of admission: 02/04/2021 Date of discharge: 02/05/2021 Jared Portillo is a 70 year old male with history of hyperlipidemia not previously on medication who presented to the emergency department on 02/04/2021 with an episode of confusion that lasted approximately 1-2 hours in which his reports that he was repeating himself and ask repetitive questions. At presentation, he denied any focal neurologic symptoms. Upon presentation to the emergency department, his blood pressure was elevated with additional vital signs stable, CBC and BMP unremarkable, head CT showed normal aging brain and head/neck CTA showed normal brain with 0% stenosis of internal carotid arteries. He was admitted to the hospitalist service for further evaluation management and was seen in consultation by Neurology. Please see above for further details. This episode was felt to be consistent with TIA. His symptoms resolved entirely. He will follow-up with neurology and needs to establish care with a primary care physician. He was referred to the on-call physician. He began feeling much better and was eager for discharge home. We discussed worrisome signs and symptoms for which to return and he was educated on his medications. He was discharged in hemodynamically stable condition on 02/05/2021. Status at Discharge Functional status at discharge: independent ambulation Overall status at discharge: patient is back to baseline Time Spent with Patient Time attestation: Total time spent providing and/or coordinating discharge services: 45 minutes Time spent: Greater than 30 minutes Exam Narrative: Exam Narrative: Mr. Portillo is a well-nourished, well-appearing 70-year-old male who is sitting in chair by the bedside. He appears comfortable an
--- NOTE | 2021-02-05 23:06 | ECHO_ITS ---
Patient Info Name: Jared Portillo Age: 70 years : 1950 Gender: Male Ht: 73 in Wt: 200 lbs BSA: 2.17 m2 HR: 68 bpm BP: 146 / 79 mmHg Heart Rhythm: Sinus Rhythm Technical Quality: Fair Exam Date: 02/05/2021 11:28 AM Exam Location: [facility] Pulmonary Patient Status: Outpatient Admit Date: 02/04/2021 Staff Ordering Physician: Sabrina Larry PA-C Deputy Sheriff Custody: Lorri Elias RDCS Attending Provider: Marley Salazar PA-C Referring Physician: Kendy UREÑA; Exam Type: CA echo doppler w bubble study Study Info Indications - neurologic dymptoms Complete two-dimensional, color flow and Doppler transthoracic echocardiogram is performed with agitated saline. Contrast/Agitated Saline Contrast/Ag. Saline: Agitated Saline Amount: 20.00 ml Administered By: Jesús Vernon RN Existing IV Access: Yes IV Access Condition: patent with no signs of infiltration Summary 1. Left ventricular systolic function is normal, estimated at 60-65%. 2. There is no increased left ventricular wall thickness. 3. The left ventricular diastolic function is grade I diastolic dysfunction. 4. There is trace mitral valve regurgitation. 5. There is trace tricuspid valve regurgitation. 6. No pulmonary hypertension, estimated pulmonary arterial systolic pressure is 18 mmHg. 7. No interatrial shunt with color flow Doppler nor with injection of agitated saline with and without Valsalva. Recommendations * Consider transesophageal echocardiogram if clinically indicated. Left Ventricle Left ventricular chamber dimension is normal. Left ventricular systolic function is normal, estimated at 60-65%. There is no increased left ventricular wall thickness. The left ventricular diastolic function is grade I diastolic dysfunction. Global longitudinal strain is mildly elevated at -15 %. Right Ventricle Right ventricular chamber dimension is normal. Right ventricular systolic function is normal. Left Atria Left atrial chamber dimension is normal. Right Atria Right atrial chamber dimension is normal. Atrial Septum No interatrial shunt with color flow Doppler nor with injection of agitated saline with and without Valsalva. Aortic Valve The aortic valve is not well visualized. There is no aortic valve stenosis. There is no aortic valve regurgitation. Pulmonic Valve The pulmonic valve is not well visualized. Mitral Valve The mitral valve has normal leaflets. There is trace mitral valve regurgitation. The mitral valve annulus is mildly calcified. Tricuspid Valve The tricuspid valve leaflets are normal. There is trace tricuspid valve regurgitation. No pulmonary hypertension, estimated pulmonary arterial systolic pressure is 18 mmHg. Pericardium/Pleural The pericardium appears normal. There is no pericardial effusion. Inferior Vena Cava Normal inferior vena cava with >50% collapse upon inspiration consistent with normal right atrial pressure, 5 mmHg. Aorta The aortic root size at the sinus of Valsalva is normal. Left Ventricular Outflow Tract Name Value Normal LVOT 2D LVOT Diameter 2.0 cm LVOT Doppler --
== END 2021-02-05 18:00 | disposition home or self-care (01) ==
LOC: ANHED 18:35 → ANH3MEDSUR 19:12
PROVIDERS: Emergency Medicine; Physician Assistant; Admitting Provider Internal Medicine; Emergency Provider Family Medicine; Visit Provider Internal Medicine
DX: G45.9 Transient cerebral ischemic attack, unspecified (principal); E78.00 Pure hypercholesterolemia, unspecified; E53.8 Deficiency of other specified B group vitamins; E03.9 Hypothyroidism, unspecified; R03.0 Elevated blood-pressure reading, without diagnosis of hypertension; Z87.891 Personal history of nicotine dependence
CPT/HCPCS: 36415; 70450; 70496; 70498; 70553; 71045; 80048; 80053; 80061; 80076; 80307; 81001; 82607; 84439; 84443; 84484; 85025; 85610; 85730; 93005; 93306; 96360; 96361; 96375; 99285; A9270; A9577; G0378; J7120; Q9967

== ENCOUNTER → 2021-12-05 02:09 | Outpatient (CLI) | payer MEDICARE, OTHER, SELFPAY ==
[2021-12-05 17:56] LABS: SARS-CoV-2 RNA PCR Positive
== END ==
PROVIDERS: PCP Emergency Medicine; Visit Provider Emergency Medicine
DX: U07.1 COVID-19 (principal)
CPT/HCPCS: C9803; U0003; U0005

== ENCOUNTER → 2021-12-11 01:52 | Outpatient (CLI) | payer MEDICARE, OTHER, SELFPAY ==
[2021-12-11 17:21] LABS: SARS-CoV-2 RNA PCR Positive
== END ==
PROVIDERS: PCP Emergency Medicine; Visit Provider Emergency Medicine
DX: U07.1 COVID-19 (principal)
CPT/HCPCS: C9803; U0003; U0005

== ENCOUNTER → 2021-12-18 02:22 | Outpatient (CLI) | payer MEDICARE, OTHER, SELFPAY ==
[2021-12-18 16:44] LABS: SARS-CoV-2 RNA PCR Negative
== END ==
PROVIDERS: PCP Emergency Medicine; Visit Provider Emergency Medicine
DX: U07.1 COVID-19 (principal)
CPT/HCPCS: C9803; U0003; U0005

== ENCOUNTER 2022-01-14 13:18 | Outpatient (CLI) | payer MEDICARE, OTHER, SELFPAY ==
--- NOTE | ~2022-01-14 | XR_ITS ---
XR foot RT min 3V DATE: 01/14/2022 13:41 INDICATION: Unable to straighten second through fifth toes; possible fracture 2 years ago TECHNIQUE: 4 views COMPARISON: None FINDINGS: There is minimal plantar calcaneal enthesopathy without associated erosive change or perios titis. There is dorsal degenerative spurring at the navicular-cuneiform articulation. There is mild osteoarthritis at the first metatarsophalangeal joint. There are hammertoe deformities of the second through fifth digits. No fracture, dislocation, periosteal reaction or bone destruction. IMPRESSION: Hammertoe deformities of second through fifth digits Minimal plantar calcaneal enthesopathy Mild osteoarthritis Reviewed, dictated and finalized at location A.
== END 2022-01-14 13:19 | disposition home or self-care (01) ==
PROVIDERS: PCP Emergency Medicine; Visit Provider Emergency Medicine
DX: M19.071 Primary osteoarthritis, right ankle and foot (principal); M77.31 Calcaneal spur, right foot
CPT/HCPCS: 73630

== ENCOUNTER 2022-03-13 10:02 | Emergency (ER) | payer OTHER, MEDICARE, SELFPAY ==
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
[2022-03-13 10:14] VITALS: BP 151/98; PULSE 88; RESP 18; TEMP 37.4; O2SAT 97
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
== END 2022-03-13 11:00 | disposition home or self-care (01) ==
PROVIDERS: Emergency Provider Nurse Practitioner Family; PCP Emergency Medicine
DX: S01.01XA Laceration without foreign body of scalp, initial encounter (principal); V43.52XA Car driver injured in collision with other type car in traffic accident, initial encounter; Z87.891 Personal history of nicotine dependence; E78.00 Pure hypercholesterolemia, unspecified; I10 Essential (primary) hypertension
CPT/HCPCS: 12002; 99212; G0463

== ENCOUNTER 2022-03-23 15:52 | Emergency (ER) | payer OTHER, MEDICARE, SELFPAY ==
[2022-03-23 16:00] VITALS: BP 151/91; PULSE 64; RESP 18; TEMP 36.7; O2SAT 99
--- NOTE | 2022-03-23 16:09 | ED.WOUNDLAC ---
HPI - Wound/Laceration General Chief Complaint: Wound/Laceration Stated Complaint: Stitch Removal Time Seen by Provider: 03/23/22 16:00 Source: patient Mode of arrival: ambulatory Limitations: no limitations History of Present Illness HPI narrative: Jared Mckee is here for staple removal from left parietal area of head replaced 10 days ago Related Data Home Medications Medication Instructions Recorded Confirmed carvedilol [Coreg] 6.25 mg PO DAILY 03/13/22 03/23/22 Allergies Allergy/AdvReac Type Severity Reaction Status Date / Time No Known Allergies Allergy Verified 03/23/22 15:55 Review of Systems Review of Systems: CONSTITUTIONAL: Denies fever, chills, sweats. EYES: Denies visual changes, redness, discharge. ENT: Denies rhinorrhea, congestion, sore throat, otalgia. CARDIOVASCULAR: Denies chest pain, palpitations, edema. RESPIRATORY: Denies dyspnea, wheezing, cough GASTROINTESTINAL: Denies abdominal pain, nausea, vomiting, diarrhea. GENITOURINARY: Denies dysuria, hematuria, abnormal discharge SKIN: Denies rash or itching. NEUROLOGIC: Denies numbness, or focal weakness. PSYCHIATRIC: Denies anxiety or depression. Stable removed from head PMFSH Past Medical History Medical History High cholesterol Hypertension Surgical History Surgical History History of bilateral inguinal hernia repair History of facial surgery Repair left orbital fracture. Family History Family History Mother Cerebrovascular accident Father Myocardial infarct Social History Social History Social History: The patient lives with his in [place]. They have 2 dogs. He has no children. 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. 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 He drinks about a 12 pack of beer a week. No illicit substance use. He designates his Rani as his surrogate decision maker and he wishes to be a full code. Comments At time of signature, I agree with nursing past medical, surgical, social and family history. There is no relevant family history pertinent to the presenting complaint. Exam Narrative: GENERAL: This is a well-nourished, well-developed patient, in mild distress. HEAD: normocephalic, atraumatic. EYES:Sclera clear/white. Vision is grossly intact. EARS: External ears normal, Hearing grossly intact. NOSE: External nose normal without nasal discharge, nares without redness, no rhinorrhea. THROAT: Mucous membranes moist, NECK: Neck supple, CARDIOVASCULAR: Regular rate and rhythm without murmurs, gallops, or rubs. RESPIRATORY: Clear to auscultation. Breath sounds equal bilaterally. No wheezes, rales, or rhonchi. GASTROINTESTINAL: Not done SKIN: warm, intact with no suspicious lesions or rash, good texture and turgor. NEURO: awake, alert, and oriented to person, place and time. There were no obvious focal neurologic abnormalities. Steady gait EXTREMITIES: Normal range of motion. BACK: Nontender without deformity Suture line well approximated and healed Course Course Emergency Course: Laceration of left parietal area of head which is 2 braxton healed well approximated removal of 2 braxton Care instructions given Level of Care: Express Care Visit Vital Signs Vital signs: Vital Signs Temperature 98.1 F 03/23/22 16:00 Pulse Rate 64 03/23/22 16:00 Respiratory Rate 18 03/23/22 16:00 Blood Pressure 151/91 H 03/23/22 16:00 Pulse Oximetry 99 03/23/22 16:00 Temperature 98.1 F 03/23/22 16:00 Pulse Rate 64 03/23/22 16:00 Respiratory Rate 18 03/23/22 16:00 Blood Pressure 151/91 H 03/23/22 16:00 Pulse Oximetry 99 03/23/22 16:00 MDM - Wound/Laceration Differential Diagnosis Differential diagnosis: Likely other (St
== END 2022-03-23 16:11 | disposition home or self-care (01) ==
PROVIDERS: Emergency Provider Nurse Practitioner; PCP Emergency Medicine
DX: S01.01XD Laceration without foreign body of scalp, subsequent encounter (principal); X58.XXXD Exposure to other specified factors, subsequent encounter; E78.00 Pure hypercholesterolemia, unspecified; I10 Essential (primary) hypertension
CPT/HCPCS: 99211; G0463

== ENCOUNTER 2024-06-23 09:36 | Emergency (ER) | payer MEDICARE, OTHER, SELFPAY ==
--- NOTE | ~2024-06-23 | XR_ITS ---
EXAMINATION: XR knee RT min 4V DATE: 06/23/2024 10:37 INDICATION: Right knee pain. Fall. TECHNIQUE: 4 views of right knee were obtained. COMPARISON: None. FINDINGS: Alignment is normal. No fracture. There is mild tricompartmental osteoarthritis. No knee jameson int effusion. IMPRESSION: 1. Mild right knee osteoarthritis. Reviewed, dictated and finalized at location A.
[2024-06-23 09:52] VITALS: BP 143/76; PULSE 78; RESP 16; TEMP 37.1; O2SAT 99
--- NOTE | 2024-06-23 10:04 | ED.FALL ---
HPI - Fall General Chief Complaint: Fall Stated Complaint: fall last night Time Seen by Provider: 06/23/24 10:05 Source: patient Mode of arrival: ambulatory Limitations: no limitations History of Present Illness HPI Narrative: Jared is a 73 year old male patient presenting to the clinic today with c/o posterior lateral right knee pain after falling yesterday off a step ladder. He reports he was trying to catch the garage door from crashing down when the spiring broke. He fell on his right hip and knee. Denies any hip pain at this time. States the knee pain is worse with ambulation/bearing weight and when going from a sitting to standing/standing to sitting position. He denies hitting his head, neck pain, or any loss of consciousness. Related Data Home Medications Medication Instructions Recorded Confirmed carvedilol 6.25 mg tablet (Coreg) 6.25 mg PO DAILY 03/13/22 06/23/24 Allergies Allergy/AdvReac Type Severity Reaction Status Date / Time No Known Allergies Allergy Verified 06/23/24 10:03 Review of Systems Review of Systems: Pertinent positives per HPI. Patient denies any fever, chills, rash, headache, visual changes, dizziness, cough, runny nose, sore throat, shortness of breath, chest pain, palpitations, nausea, vomiting, diarrhea, constipation, abdominal pain, or any urinary issues. [facility] Past Medical History Medical History High cholesterol Hypertension Surgical History Surgical History History of bilateral inguinal hernia repair History of facial surgery Repair left orbital fracture. Family History Family History Mother Cerebrovascular accident Father Myocardial infarct Social History Social History Social History: The patient lives with his in [place]. They have 2 dogs. He has no children. 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 He drinks about a 12 pack of beer a week. No illicit substance use. He designates his Rani as his surrogate decision maker and he wishes to be a full code. Comments At the time of my signature, I reviewed and agree with the nursing past medical, surgical, social, and family history. There is no relevant family history pertinent to the patient complaint. Exam Narrative: General: Well-developed, well nourished, in no apparent distress Head: Normocephalic, atraumatic. Cardio: Regular rate and rhythm, s1 and s2 normal, no murmur appreciated. Resp: Clear to auscultation bilaterally, no rhonchi, rales, wheezing or rubs. Musculoskeletal: No deformity, non-tender to palpation, pain when going from sitting to standing/standing to sitting position as well as ambulation/bearing weight to the posterior lateral right knee, grossly normal range of motion, muscle strength strong and equal, peripheral pulse strong, no edema, no cyanosis, normal gait and station Course Course Emergency Course: Portions of this record may have been created with voice recognition software. Level of Care: Express Care Visit Vital Signs Vital signs: Vital Signs Temperature 37.1 C 06/23/24 09:52 Pulse Rate 78 06/23/24 09:52 Respiratory Rate 16 06/23/24 09:52 Blood Pressure 143/76 H 06/23/24 09:52 Pulse Oximetry 99 06/23/24 09:52 Oxygen Delivery Room Air 06/23/24 09:52 Temperature 37.1 C 06/23/24 09:52 Pulse Rate 78 06/23/24 09:52 Respiratory Rate 16 06/23/24 09:52 Blood Pressure 143/76 H 06/23/24 09:52 Pulse Oximetry 99 06/23/24 09:52 Oxygen Delivery Room Air 06/23/24 09:52 Vital signs reviewed MDM - Fall MDM Narrative Medical decision making narrative: At the time of visit patient is resting comfortably on the exam table. Patie
== END 2024-06-23 10:54 | disposition home or self-care (01) ==
PROVIDERS: Emergency Provider Nurse Practitioner Family; PCP Emergency Medicine
DX: S83.91XA Sprain of unspecified site of right knee, initial encounter (principal); W11.XXXA Fall on and from ladder, initial encounter; M17.11 Unilateral primary osteoarthritis, right knee; E78.00 Pure hypercholesterolemia, unspecified; I10 Essential (primary) hypertension
CPT/HCPCS: 73564; 99213; G0463

== ENCOUNTER 2024-06-25 08:35 | Emergency (ER) | payer MEDICARE, OTHER, SELFPAY ==
--- NOTE | ~2024-06-25 | XR_ITS ---
EXAMINATION: XR ankle RT min 3V DATE: 06/25/2024 09:24 INDICATION: Right ankle swelling TECHNIQUE: Anteroposterior, oblique, mortise, and lateral views of the right ankle were obtained. COMPARISON: None. FINDINGS: Bone alignment is normal. No fracture. Small plantar calcaneal spur. Additional small dorsal spurs at the navicular cuneiform articulation. Joint spaces appear relatively preserved. No ankle joint effus ion. Diffuse soft tissue swelling about the ankle and distal lower leg. IMPRESSION: 1. No right ankle joint effusion or acute osseous abnormality. Reviewed, dictated and finalized at location A.
[2024-06-25 08:49] VITALS: BP 142/79; PULSE 87; RESP 18; TEMP 37; O2SAT 99
--- NOTE | 2024-06-25 09:04 | ED.EXTPRO ---
HPI - Extremity Problem General Chief complaint: Extremity Problem,Nontraumatic Stated complaint: rt foot swelling Time Seen by Provider: 06/25/24 09:05 Source: patient Mode of arrival: ambulatory Limitations: no limitations History of Present Illness HPI Narrative: 73 y/o male presented for c/o right ankle swelling. Onset yesterday. Pt denies ankle or foot pain or bruising. States he injured his right knee after a fall off of a ladder 2 days ago where he fell on his right hip and knee, and xray of the right knee showed mild osteoarthritis. Pt had been wearing AMNA wrap to knee for a day, but thought the foot appeared red, so he applied a thick knee brace to the day prior to ankle swelling. Pt admits to decreased activity due to the mild knee pain. Has not taken anything for pain. Denies redness or warmth to the calf or ankle. Related Data Home Medications Medication Instructions Recorded Confirmed carvedilol 6.25 mg tablet (Coreg) 6.25 mg PO BID 03/13/22 06/25/24 Allergies Allergy/AdvReac Type Severity Reaction Status Date / Time No Known Allergies Allergy Verified 06/25/24 08:37 Review of Systems Review of Systems: CONSTITUTIONAL: Denies body aches, fever, chills CARDIOVASCULAR: Denies chest pain, palpitations, or edema. RESPIRATORY: Denies cough or dyspnea. SKIN: Denies rash, itching, or wounds. MUSCULOSKELETAL: right ankle swelling, right knee pain. NEUROLOGIC: Denies headache, numbness, tingling, or weakness. All systems reviewed & are unremarkable except as noted in HPI and below PMFSH Past Medical History Medical History High cholesterol Hypertension Surgical History Surgical History History of bilateral inguinal hernia repair History of facial surgery Repair left orbital fracture. Family History Family History Mother Cerebrovascular accident Father Myocardial infarct Social History Social History Social History: The patient lives with his in [place]. They have 2 dogs. He has no children. 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 He drinks about a 12 pack of beer a week. No illicit substance use. He designates his Rani as his surrogate decision maker and he wishes to be a full code. Comments At time of signature, I have reviewed and agree with nursing past medical, surgical, social and family history unless otherwise noted. Please see nursing chart for further information. There is no relevant family history pertinent to the presenting complaint Exam Narrative: GENERAL: Well-appearing CHEST: Speaks in full sentences. No respiratory distress. HEART: Regular rate and rhythm. Normal and equal peripheral pulses. EXTREMITIES: Right knee with brace in place. Right ankle and foot has normal strength and sensation, normal range of motion with flexion/extension/rotation, without pain with movement. Mild bilateral lower extremity edema, right ankle with 1+ ankle edema. No ecchymosis, erythema, warmth or point tenderness. No calf pain. No open wounds or obvious deformity; alignment normal, pulse palpable and equal bilaterally, skin warm, dry, pink. Capillary refill less than 3 seconds. SKIN: Warm, dry. NEURO: Alert and oriented x3. PSYCH: Normal mood and affect Course Course Emergency Course: Patient is aware of diagnosis, understands and agrees to treatment plan. Anticipatory guidance given. Patient agrees to follow-up as directed and is aware of reasons to seek care at the emergency department. Portions of this record may have been created with voice recognition software Level of Care: Express Care Visit Vital Signs Vital signs: Vital Signs Temperature 98.6 F 06/25/24 08:49 Pulse Ra
== END 2024-06-25 09:35 | disposition home or self-care (01) ==
PROVIDERS: Emergency Provider Nurse Practitioner Family; PCP Emergency Medicine
DX: M25.471 Effusion, right ankle (principal); E78.00 Pure hypercholesterolemia, unspecified; I10 Essential (primary) hypertension; Z87.891 Personal history of nicotine dependence
CPT/HCPCS: 73610; 99213; G0463

== ENCOUNTER 2025-10-17 19:06 | Emergency (ER) | payer MEDICARE, OTHER, SELFPAY ==
--- NOTE | 2025-10-17 19:10 | ED.LOWEXIN ---
HPI - Extremity Injury (Lower) General Chief Complaint: Extremity Injury, Lower Stated Complaint: L Toe Time Seen by Provider: 10/17/25 19:29 Source: patient and RN notes reviewed Mode of arrival: ambulatory Limitations: no limitations History of Present Illness HPI Narrative: 75-year-old male presents with concern for pain, redness, swelling to the base of the 1st digit. Reports that started few days ago, he rested it it just got worse. He denies injury or trauma. He denies fever, body aches, chills, sweats. He rested over the weekend. MD complaint: other (toe pain) Related Data Home Medications ?Medication ?Instructions ?Recorded ?Confirmed ?Last Taken ?Type carvedilol 6.25 mg tablet (Coreg) 6.25 mg PO BID 03/13/22 06/25/24 Unknown History Allergies Allergy/AdvReac Type Severity Reaction Status Date / Time No Known Allergies Allergy Verified 10/17/25 19:12 Review of Systems Review of Systems: CONSTITUTIONAL: Denies malaise, chills, sweats, or fever. SKIN: Denies rash or itching, open skin, laceration, abrasion MUSCULOSKELETAL: Reports pain, redness, swelling to the base of the 1st digit of the left foot NEUROLOGIC: Denies numbness, weakness All systems reviewed & are unremarkable except as noted in HPI and below PMFSH Past Medical History Medical History High cholesterol Hypertension Surgical History Surgical History History of bilateral inguinal hernia repair History of facial surgery Repair left orbital fracture. Family History Family History Mother Cerebrovascular accident Father Myocardial infarct Social History Social History Social History: The patient lives with his in [place]. They have 2 dogs. He has no children. 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 He drinks about a 12 pack of beer a week. No illicit substance use. He designates his Rani as his surrogate decision maker and he wishes to be a full code. Comments At time of signature, agree with nursing past medical, surgical, social and family history. There is no relevant family history pertinent to the presenting complaint Exam Narrative: GENERAL: Well-appearing, well-nourished, and in no acute distress. HEAD: Normocephalic, atraumatic. EYES: PERRLA, conjunctivae clear NECK: Supple. CHEST: Speaks in full sentences. No respiratory distress. HEART: Regular rate and rhythm. Normal and equal peripheral pulses. EXTREMITIES: Left foot and digits have grossly normal strength and sensation, grossly normal range of motion. Mild edema, warmth, erythema noted to the base of the 1st digit without ecchymosis. Normal sensation with sensitivity to light touch and pain. Tenderness noted to the base of the 1st digit without induration. No open wounds, no skin tenting, no devitalized tissue or atrophy, no trophic changes, no obvious deformity, alignment normal, nearby joints and structures intact. Distal pulses palpable and equal bilaterally, skin warm, dry, pink. Capillary refill less than 3 seconds. SKIN: Warm, dry, no rash. NEURO: Alert and oriented x3. PSYCH: Normal mood and affect Course Course Emergency Course: Patient is aware of diagnosis, understands and agrees to treatment plan. Anticipatory guidance given. Patient agrees to follow-up as directed and is aware of reasons to seek care at the emergency department. Portions of this record may have been created with voice recognition software Level of Care: [facility] Visit MDM Differential Diagnosis Differential Diagnosis: I evaluated this patient in the [facility] care. History is obtained from patient who is an independent historian and physical exam was performed.? Available medical records were reviewed. ? Exam findings and relevant testing show no acute concerns or changes; patient is non-toxic appearing and is in no distress. ? Patients injury and/or pain is consistent with musculoskeletal etiology. No signs of neurological or vascular compromise on exam. Compartments and tissues are soft without signs of compartment syndrome. Pain is felt appropriate for further evaluation on an outpatient basis. Differential diagnosis and treatment plan were discussed with the patient. Patient agrees with discussion and after shared medical decision making agrees with plan of care. All questions were answered to the patient's satisfaction. Patient is appropriate for outpatient treatment and follow-up. Discharge Plan Discharge Clinical Impression: Gout Patient Disposition: Home Condition: Stable Instructions: Low Purine Diet (ED), Gout (ED) Additional Instructions: 1) Please follow-up with your primary care doctor in the next 1-2 days. 2) If you have any worsening of symptoms or any other urgent concerns please go to the ER. 3) Please take medications as prescribed and continue taking your home medications as usual. 4) Please read and follow information included in discharge instructions. Patient Language: Telugu Prescriptions: New prednisone 50 mg tablet 50 mg PO DAILY 5 Days Qty: 5 0RF No Action carvedilol [Coreg] 6.25 mg tablet 6.25 mg PO BID Follow-up/Referrals: Kirk Rivas MD [Primary Care Provider, Family Practice] Time of Disposition: 19:37
[2025-10-17 19:13] VITALS: BP 153/96; PULSE 81; RESP 16; TEMP 36.8; O2SAT 99
== END 2025-10-17 19:40 | disposition home or self-care (01) ==
PROVIDERS: Emergency Provider Nurse Practitioner; PCP Emergency Medicine
DX: M10.9 Gout, unspecified (principal); I10 Essential (primary) hypertension; E78.00 Pure hypercholesterolemia, unspecified; Z87.891 Personal history of nicotine dependence
CPT/HCPCS: 99213; G0463

== ENCOUNTER 2025-10-31 12:29 | Emergency (ER) | payer MEDICARE, OTHER, SELFPAY ==
[2025-10-31 12:40] VITALS: BP 152/80; PULSE 90; RESP 20; TEMP 36.8; O2SAT 98
--- OUTSIDE RECORDS SUMMARY | 2025-10-31 12:43 | XMS_ITS | Clinical Summary ---
Author Organization [facility] Address [address] [place] [id number] Care Team Providers Care Extension Service Supervisor Name Role Phone Kirk Rivas MD Primary Care Provider [phone] Allergies No known active allergies Medications cyanocobalamin (Vitamin B-12) 1,000 mcg tabletIndicatio ns:Prevention of Vitamin B12 Deficiency Take 1 tablet (1,000 mcg total) by mouth daily Active ascorbic acid (VITAMIN C) 500 mg tablet,chewable Acti ve calcium-magnesi um 300-300 mg tablet Take by mouth Active aspirin 81 mg enteric coated tablet Take 1 tablet (81 mg total) by mouth daily 90 tablet Active Additional Information Patient not taking.Reported on 08/12/2025 carvediloL (COREG) 12.5 mg tablet Take 1 tablet (12.5 mg total) by mouth 2 (two) times a day with meals 180 tablet 2 Active losartan (COZAAR) 100 mg tablet TAKE 1 TABLET(100 MG) BY MOUTH DAILY 90 tablet 3 5 Active atorvastatin (LIPITOR) 40 mg tablet TAKE 1 TABLET(40 MG) BY MOUTH DAILY 90 tablet 3 5 Active Active Problems Problem Noted Date Diagnosed Date Other hyperlipidemia 05/03/2021 Assessment & Plan (08/12/2025 9:04 AM CDT): Lipitor 40mg daily, FLP when able. Assessment & Plan (02/11/2025 8:40 AM CDT): Lipitor 40mg daily, FLP when able. TIA (transient ischemic attack) 03/21/2021 Assessment & Plan (02/11/2025 8:40 AM CDT): ASA and statin. Essential hypertension 03/21/2021 Assessment & Plan (08/12/2025 9:02 AM CDT): Improved, reluctant to further increase Coreg today. He will log his BP and update us in a few weeks. Continue Coreg 12.5mg BID, continue losartan 100mg daily. BP log and 6 months follow up. Check lab work when able. BMP and FLP. Assessment & Plan (02/11/2025 8:42 AM CDT): Uncontrolled. Will increase coreg today to 12.5mg BID, continue losartan 100mg daily. BP log and 6 months follow up. Check lab work when able. BMP and FLP. Neck pain 07/29/2014 Overview (02/08/2017): Cervicalgia Melanocytic nevus of trunk 03/30/2014 Seborrheic eczema 03/30/2014 Impacted cerumen 07/20/2012 Encounters Date Type Department Care Team Description 08/24/2025 Telephone [facility] Medicine Cardiology [facility] [address] [place] [address] [place] [address] Lupe Reza NP Lab Results 08/15/2025 Results Follow-Up [facility] Medicine Cardiology [address] [facility] [address] [place] [address] Lupe Reza NP Basic metabolic panel, Lipid panel, eGFR 08/12/2025 9:10 AM CDT Lab [facility] [address] [place] [address] [address] [place] [address] Other hyperlipidemia 08/12/2025 8:30 AM CDT Office Visit [facility] Medicine Cardiology [address] [facility] [address] [place] [address] Lupe Reza NP Essential hypertension (Primary Dx); Other hyperlipidemia 08/12/2025 Orders Only [facility] Medicine Cardiology [facility] [address] [place] [address] [place] [address] Lupe Reza NP Essential hypertension (Primary Dx); Other hyperlipidemia from Last 3 Months Medical History Medical History Date Comments Hx Other Medical 11/03/1979 hernia Fracture of orbit (HCC) 11/04/1972 Orbital bone fractures Family History Medical History Relation Name Comments Heart failure Father Stroke Maternal Grandfather Stroke; Stroke Mother Stroke; Relation Name Status Comments Father Maternal Grandfather Mother Social History Tobacco Use Types Packs/Day Years Used Date Smoking Tobacco: Former Passive Smoke Exposure: Past Smokeless Tobacco: Never Tobacco Cessation:Counseling Given: Not Answered Alcohol Use Standard Drinks/Week Comments Yes 0 (1 standard drink = 0.6 oz pur e alcohol) Sex and Gender Information Value Date Recorded Sex Assigned at Not on file 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 Gender Identity Not on file Sexual Orientation Not on file Last Filed Vital Signs Vital Sign Reading Time Taken Comments Blood Pressure 146/88 08/12/2025 8:28 AM CDT Pulse 66 08/12/2025 8:28 AM CDT Temperature 36.3 C (97.3 F) 08/12/2025 8:28 AM CDT Respiratory Rate - - Oxygen Saturation 100% 08/12/2025 8:28 AM CDT Inhaled Oxygen Concentration - - Weight 97.4 kg (214 lb 12.8 oz) 08/12/2025 8:28 AM CDT Height 182.9 cm (6') 08/12/2025 8:28 AM CDT Body Mass Index 29.13 08/12/2025 8:28 AM CDT Plan of Treatment Health Maintenance Due Date Last Done Comments Colon Cancer Screening-Colonoscopy 1950 Depression Screening 1952 Fall Risk Assessment 1950 Hepatitis C Screening 1952 Hepatitis B Screening 1970 Pneumococcal vaccine 65+ (1 of 1 - PCV) 2002 Zoster Vaccine (1 of 2) 2002 Abdominal Aortic Aneurysm (AAA) Screen 2017 Well Visit 65+ 2017 Influenza Vaccine (#1) 2025 DTaP/Tdap/Td Vaccine (2 - Td or Tdap) 12/22/2029 Procedures Procedure Name Priority Date/Time Associated Diagnosis Comments EGFR Routine 08/12/2025 9:15 AM CDT Other hyperlipidemia LIPID PANEL Routine 08/12/2025 9:15 AM CDT Other hyperlipidemia BASIC METABOLIC PANEL Routine 08/12/2025 9:15 AM CDT Other hyperlipidemia from Last 3 Months Results * eGFR (08/12/2025 9:15 AM CDT) eGFR 70 >=60 mL/min/1. 73 m2 Comment: Interpretive Data Reference Interval Normal >/= 90 mL/min/1.73m2 Mildly decreased* 60 - 89 mL/min/1.73m2 Mildly to moderately decreased 45 - 59 mL/min/1.73m2 Moderately to severely decreased 30 - 44 mL/min/1.73m2 Severely decreased 15 - 29 mL/min/1.73m2 Kidney Failure < 15 mL/min/1.73m2 *Relative to young adult level Estimated glomerular filtration rate is determined by the 2020 CKD-EPI equation recommended by the National Kidney Foundation (A Unifying Approach to GFR Estimation: Recommendations of the NKF-ASK Task Force on Reassessing the Inclusion of Race in Diagnosing Kidney Disease, JASN 2020). The CKD-EPI equation should not be used for patients with unstable renal function and has not been validated in children and those over 70. Current interpretive data was last reviewed 2021. Blood 08/12/2025 9:15 AM CDT 08/12/2025 11:59 AM CDT Lupe Reza [facility] BLOOD ORDERABLES Final Result [facility] Department of Laboratories [place], [place] [id number] * (ABNORMAL) Lipid panel (08/12/2025 9:15 AM CDT) Cholesterol 255(H) 30 - 199 mg/dL Comment: Interpretive Data Ages < or = 19 years Acceptable: <170 mg/dL Borderline high: 170-199 mg/dL High: >or= 200 mg/dL Ages > or = 20 years Desirable: <200 mg/dL Borderline high: 200-239 mg/dL High: >or= 240 mg/dL Literature References: 1. Expert Panel on Integrated Guidelines for Cardiovascular Health and Risk Reduction in Children and Adolescents. Pediatrics 2011;128:S213 2. NCEP Expert Panel. Circulation 2004;110:227 Current Interpretive Data was last revised on 2018. Triglycerides 227(H) <=149 mg/dL [facility] Comment: Interpretive Data Ages < or = 9 years Acceptable: <75 mg/dL Borderline high: 75-99 mg/dL High: >or= 100 mg/dL Ages 10 to 20 years Acceptable: <90 mg/dL Borderline high: 90-129 mg/dL High: >or= 130 mg/dL Ages > or = 20 years Desirable: <150 mg/dL Borderline high: 150-199 mg/dL High: 200-499 mg/dL Very high: >or= 499 mg/dL Literature References: 1. Expert Panel on Integrated Guidelines for Cardiovascular Health and Risk Reduction in Children and Adolescents. Pediatrics 2011;128:S213 2. NCEP Expert Panel. Circulation 2004;110:227 Current Interpretive Data was last revised on 2018. HDL 62 >=40 mg/dL [facility] Comment: Interpretive Data Ages < or = 19 years Acceptable: >45 mg/dL Borderline low: 40-45 mg/dL Low: <40 mg/dL Ages > or = 20 years Desirable: >or= 60 mg/dL Low: <40 mg/dL Literature References: 1. Expert Panel on Integrated Guidelines for Cardiovascular Health and Risk Reduction in Children and Adolescents. Pediatrics 2011;128:S213 2. NCEP Expert Panel. Circulation 2004;110:227 Current Interpretive Data was last revised on 2018. LDL, calculated 152(H) <=129 mg/dL [facility] Comment: Interpretive Data Ages < or = 19 years Acceptable: <110 mg/dL Borderline high: 110-129 mg/dL High: >or= 130 mg/dL Ages > or = 20 years Optimal: <100 mg/dL Near optimal: 100-129 mg/dL Borderline high: 130-159 mg/dL High: >160 mg/dL Calculated using the Velazquez LDL-C estimating equation. This equation was implemented on 2024. Prior to this date LDL-C was estimated using the Friedewald equation. Literature References: 1. Expert Panel on Integrated Guidelines for Cardiovascular Health and Risk Reduction in Children and Adolescents. Pediatrics 2011;128:S213 2. NCEP Expert Panel. Circulation 2004;110:227 3. Marcus Matthews et al. RICARDO Cardiol. 2020 March 03;5(5):540-548. doi: 10.1001/jamacardio.2020.0013 Current Interpretive Data was last revised on 2024. Non-HDL Cholesterol 193 mg/dL [facility] Comment: Interpretive Data Ages < or = 19 years Acceptable: <120 mg/dL Borderline high: 120-144 mg/dL High: >145 mg/dL Ages > or = 20 years When triglycerides are >200 mg/dL, Non-HDL cholesterol is a secondary target of therapy with treatment goals that are 30 mg/dL greater than the LDL cholesterol target. Literature References: 1. Expert Panel on Integrated Guidelines for Cardiovascular Health and Risk Reduction in Children and Adolescents. Pediatrics 2011;128:S213 2. NCEP Expert Panel. Circulation 2004;110:227 Current Interpretive Data was last revised on 2018. Chol/HDL ratio 4 [facility] Blood 08/12/2025 9:15 AM CDT 08/12/2025 11:43 AM CDT Lupe Reza [facility] BLOOD ORDERABLES Final Result [facility] Department [place] [address] * Basic metabolic panel (08/12/2025 9:15 AM CDT) Sodium 139 135 - 145 mmol/L Potassium, pl 4.8 3.3 - 4.9 mmol/L [facility] Chloride 105 97 - 110 mmol/L [facility] CO2 28 22 - 32 mmol/L [facility] Anion gap 6 2 - 15 mmol/L [facility] BUN 13 6 - 25 mg/dL [facility] Creatinine 1.12 0.80 - 1.30 mg/dL [facility] Glucose 103 70 - 199 mg/dL [facility] Comment: Interpretive Data Fasting glucose >/= 126 mg/dl is diagnostic for diabetes. Fasting is defined as no caloric intake for at least 8 hours. Fasting glucose between 100 mg/dl to 125 mg/dl is diagnostic of prediabetes. In a patient with classic symptoms of hyperglycemia or hyperglycemic crisis, a random glucose >/= 200 mg/dl is diagnostic for diabetes. In the absence of unequivocal hyperglycemia, results should be confirmed by repeat testing. The classification and Diagnosis of Diabetes Diabetes Care 202; 46: S19-S40. Current interpretive data was last revised 2022. Calcium 9.4 8.5 - 10.3 mg/dL [facility] Blood 08/12/2025 9:15 AM CDT 08/12/2025 11:43 AM CDT us Lupe Reza [facility] BLOOD ORDERABLES Final Result [facility] Department [place] [address] from Last 3 Months Insurance MEDICARE [facility] MEDICARE [facility] MEDICARE [facility] Care Teams Extension Service Supervisor Relationship Specialty Start Date End Date Kirk Rivas MD PCP - General Emergency Medicine 02/22/21
--- NOTE | 2025-10-31 12:53 | ED_ITS ---
HPI - URI/Sore Throat General Chief Complaint: Upper Respiratory Infection Stated Complaint: Congestion Time Seen by Provider: 10/31/25 12:42 Source: patient and RN notes reviewed Mode of arrival: ambulatory Limitations: no limitations History of Present Illness HPI Narrative: 75-year-old male patient presents today with a 2 day history of cough, body aches some fatigue, rhinorrhea, nasal congestion. Denies shortness of breath, chest pain, fever. He has tried some aspirin this morning with some mild relief. He did not receive a flu vaccine this season. No history of asthma or COPD. Related Data Home Medications ?Medication ?Instructions ?Recorded ?Confirmed ?Last Taken ?Type carvedilol 6.25 mg tablet (Coreg) 6.25 mg PO BID 03/1306/25/24 Unknown History Allergies Allergy/AdvReac Type Severity Reaction Status Date / Time No Known Allergies Allergy Verified 10/31/25 12:33 [facility] Past Medical History Medical History Hypertension High cholesterol Surgical History Surgical History History of facial surgery Repair left orbital fracture. History of bilateral inguinal hernia repair Family History Family History Mother Cerebrovascular accident Father Myocardial infarct Social History Social History Social History: The patient lives with his in [place]. They have 2 dogs. He has no children. 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 He drinks about a 12 pack of beer a week. No illicit substance use. He designates his Rani as his surrogate decision maker and he wishes to be a full code. Comments At time of signature, I have reviewed and agree with nursing past medical, surgical, social and family history unless otherwise noted. Please see nursing chart for further information. There is no relevant family history pertinent to the presenting complaint Exam Narrative: GENERAL: Mildly ill-appearing, well-nourished, and in no acute distress. HEAD: Normocephalic, atraumatic. EYES: EOMI. No redness or drainage. Conjunctivae normal. ENT: Mucous membranes pink and moist. Nares congested. No rhinorrhea. TMs normal bilaterally. Throat normal. Uvula midline. NECK: Normal AROM. Supple. No lymphadenopathy. CHEST: No respiratory distress. Clear to auscultation. HEART: Regular rate and rhythm. No murmur appreciated. EXTREMITIES: Normal range of motion. No edema. SKIN: Warm, dry, no rash. Capillary refill normal. Normal skin turgor. NEURO: No focal deficits. Alert and oriented x3. Gait steady. PSYCH: Normal affect. No signs of depression or anxiety. Course Course Level of Care: Express Care Visit Vital Signs Vital signs: Vital Signs Temperature 98.3 F 10/31/25 12:40 Pulse Rate 90 10/31/25 12:40 Respiratory Rate 20 10/31/25 12:40 Blood Pressure 152/80 H 10/31/25 12:40 Pulse Oximetry 98 10/31/25 12:40 Oxygen Delivery Room Air 10/31/25 12:40 Temperature 98.3 F 10/31/25 12:40 Pulse Rate 90 10/31/25 12:40 Respiratory Rate 20 10/31/25 12:40 Blood Pressure 152/80 H 10/31/25 12:40 Pulse Oximetry 98 10/31/25 12:40 Oxygen Delivery Room Air 10/31/25 12:40 Reviewed [facility] Narrative Medical decision making narrative: 75-year-old male patient presents today with a 2 day history of cough, body aches some fatigue, rhinorrhea, nasal congestion. Denies shortness of breath, chest pain, fever. He has tried some aspirin this morning with some mild relief. He did not receive a flu vaccine this season. No history of asthma or COPD. Upon exam, patient is mildly ill appearing with nasal congestion. Influenza a positive. COVID negative. Patient is just within the window for Tamiflu and would like to take it. Prescription sent. Recommend OTC medication for symptom control as needed. Patient agrees with plan. Vital signs stable. Anticipatory guidance and ED precautions given. Differential Diagnosis Differential Diagnosis: COVID-19, influenza, URI Lab Data [facility] Lab Attestation statement: I personally reviewed the patient's lab results. Lab results narrative: Influenza a positive, COVID negative Critical Care Time Critical Care Time Critical Care Time: No Discharge Plan Discharge Clinical Impression: Influenza A Patient Disposition: Home Condition: Stable Instructions: Influenza (DC) Additional Instructions: You have tested positive for influenza A. Please take the Tamiflu as prescribed. You may continue any [id number] medication as needed for your symptoms. Follow-up with your PCP in 1 week if symptoms are not improving. As discussed, if symptoms worsen to include shortness of breath or chest pain, please go to the ER immediately for further evaluation. Patient Language: Latvian Prescriptions: New oseltamivir [Tamiflu] 75 mg capsule 75 mg PO Q12H 5 Days Qty: 10 0RF No Action carvedilol [Coreg] 6.25 mg tablet 6.25 mg PO BID prednisone 50 mg tablet 50 mg PO DAILY 5 Days Qty: 5 0RF Follow-up/Referrals: Kirk Rivas MD [Primary Care Provider, [facility]] Time of Disposition: 12:58
[2025-10-31 12:58] LABS: EDCOVIDSCREEN Negative (Negative); EDINFLUASCREEN Positive (Negative); EDINFLUBSCREEN Negative (Negative)
== END 2025-10-31 12:59 | disposition home or self-care (01) ==
PROVIDERS: Emergency Provider Nurse Practitioner; PCP Emergency Medicine
DX: J10.1 Influenza due to other identified influenza virus with other respiratory manifestations (principal); I10 Essential (primary) hypertension; E78.00 Pure hypercholesterolemia, unspecified
CPT/HCPCS: 87426; 87804; 99213; G0463